=== PATIENT | female | born 1940 | race African-American/Black ===

== ENCOUNTER → 2019-12-25 | Outpatient (CLI) | payer OTHER ==
--- NOTE | 2019-12-25 14:49 | RAD ---
CT head without contrast PQRS statement: CT scans at this facility use dose reduction including either automated exposure control, iterative reconstructions, and /or weight based radiation dosing via mA and kV modification when appropriate to reduce radiation dose to as low as reasonably achievable. HISTORY: Head injury, contusion of head. FINDINGS: Mild generalized brain atrophy. There is extensive cerebral white matter hypoattenuation, in a patient of this age most likely represents changes of chronic small vessel ischemic disease. No intracranial hemorrhage, mass, hydrocephalus, extra-axial fluid collections or infarction. No acute ischemic changes. Orbits, paranasal sinuses, mastoids and bones are unremarkable. IMPRESSION: No acute abnormality. Electronically signed by: Yoni Love MD (12/25/2019 2:46 PM) [id number]
== END ==
LOC: CT 12:58
DX: S00.93XA Contusion of unspecified part of head, initial encounter (principal); G31.9 Degenerative disease of nervous system, unspecified; F07.81 Postconcussional syndrome; X58.XXXA Exposure to other specified factors, initial encounter; Y93.89 Activity, other specified; Y92.89 Other specified places as the place of occurrence of the external cause; Y99.8 Other external cause status
CPT/HCPCS: 70450